=== PATIENT | female | born 1990 | race Caucasian/White ===

== ENCOUNTER 2023-06-08 09:04 | Emergency (ER) | payer OTHER, SELFPAY ==
[2023-06-08 09:08] VITALS: BP 143/108
--- NOTE | 2023-06-08 09:29 | ED.GENMED ---
History of Present Illness
General
Chief Complaint: Abdominal Symptoms
Time Seen by Provider: 06/08/23 09:29
Travel History
Have you had any contact with someone who has COVID-19?: No
Do you have any symptoms of coronavirus? Fever > 100 degrees, chills, cough, shortness of breath, sore throat, loss of taste or smell, muscle aches, or headache?: No
History of Present Illness
History of Present Illness:
HPI: The patient presents with epigastric discomfort associated with vomiting and chills. No significant diarrhea.
EXAM:
GENERAL: Well appearing in no distress
HEENT: Moist oral mucosa
CARDIOVASCULAR: No murmurs, normal heart rate and rhythm, No chest wall tenderness
PULMONARY: No respiratory distress, breath sounds are clear and equal
ABDOMEN: Soft with no peritoneal signs, no tenderness other than maybe some minimal upper abdominal tenderness
NEUROLOGIC: Excellent strength all extremities, no coordination deficits
PSYCHIATRIC: Appropriate mental status, normal insight and judgement
EXTREMITIES: Nontender, no edema, moves all extremities equally
SKIN: No rash, no lesions
ED COURSE:
I evaluated patient at 9:30 AM
NUMBER AND COMPLEXITY OF PROBLEMS ADDRESSED AT THE ENCOUNTER
� Chronic conditions affecting care:Has had ovarian cyst, IBS, has had preeclampsia
� Acute Exacerbation and/or Progression of Chronic Illness:
� Differential Diagnosis includes: Exacerbation of IBS, IBD, appendicitis, diverticulitis, pancreatitis,
AMOUNT AND/OR COMPLEXITY OF DATA TO BE REVIEWED AND ANALYZED
� I performed an independent evaluation of and my interpretation is:
EKG:
CT: CT personally reviewed and agree with radiologist interpretation of nonspecific findings
X-rays:
Laboratory Studies: White count normal 8.3, hemoglobin slightly low at 11.8, remainder of chemistries and hCG unremarkable
Other:
� Review of other/old records: I reviewed old records, the patient had preeclampsia in April 2022, in 2012 she had a colonoscopy due to hematochezia and heme positive stool and samples were biopsied
� Clinical information was obtained by an independent historian: None needed
� Prescriptions/Medications Considered but not given:
� Further testing considered but not performed:
RISK OF COMPLICATIONS AND/OR MORBIDITY OR MORTALITY OF PATIENT MANAGEMENT
� Social determinants of health affecting care: Lives at home
� Discussion with other providers:
� Escalation of care including admission/observation vs risk of discharge considered: The patient's workup is relatively were unremarkable including relatively unremarkable CT imaging. White count is normal. She appears fairly
comfortable throughout her stay in the ED. On reassessment at 12:40 PM, the patient is very comfortable in appearance.
Past History
Past History
ED Past Medical History: Other (IBS)
ED Past Surgical History: Tonsilectomy
Social History
Tobacco: Smoker
Alcohol: Occasional
Drug: None
Personal: Single
Living: with family
Employment: Not employed
Phy Exam
Physical Exam
Physical Exam:
See HPI
Course
Orders/Labs/Results
Orders:
Orders
06/08/23 09:57
0.9% Sodium Chloride 1000 ml [Nss] 1,000 ml IV BOLUS
06/08/23 09:58
Test Result ONCE
06/08/23 10:08
CT Abd/pelvis W Iv Cont Urgent
Comment:
Reason For Exam: diffuse abd pain w/ vomiting
06/08/23 10:26
Complete Blood Count/With Diff Urgent
Comprehensive Metabolic Panel Urgent
HCG, Serum Qualitative Screen Urgent
Lipase Urgent
Abnormal Lab Results
06/08/23
10:26
RBC 3.59 L 10^6/uL
(4.20-5.40)
Hgb 11.8 L g/dL
(12.0-16.0)
Hct 33.8 L %
(37.0-47.0)
MCH 32.9 H pg
(27.0-31.0)
MPV 10.6 H fL
(7.4-10.4)
Lymphocytes % 17.6 L %
(20.5-51.1)
06/08/23 10:26
06/08/23 10:26
Vital Signs
Initial and Last Documented VS:
Initial Vital Signs
Temp Pulse Resp BP Pulse Ox
97.7 F 77 20 143/108 100
06/08/23 09:08 06/08/23 09:08 06/08/23 09:08 06/08/23 09:08 06/08/23 09:08
Last Documented Vital Signs
Temp Pulse Resp BP Pulse Ox
97.7 F 77 20 143/108 100
06/08/23 09:08 06/08/23 09:08 06/08/23 09:08 06/08/23 09:08 06/08/23 09:08
*Critical Care Note
Total Time (30-74mins, 75-104mins- exclusive of procedures): Not Applicable
ED Attending Note
-
Portions of this chart may have been created with voice recognition software.� Occasional wrong word or��sound alike� substitutions may have occurred due to the inherent limitations of voice recognition software.
Discharge Plan
Departure
Patient Disposition: Home (Routine Discharge)
Date of Disposition: 06/08/23
Time of Disposition: 12:42
Patient with high blood pressure during this ER visit?: Yes
Discharge Problem:
Abdominal pain
Instructions: Abdominal Pain
Prescriptions:
No Action
loratadine [Claritin] 10 mg Tablet
10 mg PO DAILY
prenat.vits,ana,bxa-vgnc-emfyn Tablet
1 tab PO DAILY
acetaminophen 325 mg Tablet
650 mg PO Q4HPRN PRN (Reason: mild pain) Qty: 0 0RF
sennosides-docusate sodium 8.6-50 mg Tablet
1 tab PO DAILYPRN PRN (Reason: constipation) Qty: 0 0RF
ferrous sulfate [FeroSul] 325 mg (65 mg iron) Tablet
325 mg PO BID Qty: 0 0RF
ibuprofen 600 mg Tablet
600 mg PO Q6HPRN PRN (Reason: PAIN) Qty: 0 0RF
simethicone [Gas Relief 80 (simethicone)] 80 mg Tablet,Chewable
80 mg PO TIDPRN PRN (Reason: flatulence) Qty: 0 0RF
Referrals:
Will Ross MD [Active] - Follow up in 5-7 days
Javon Power MD [Family Provider] -
Activity Restrictions/Additional Instructions:
I have given you the contact information for a local GI doctor. Your white blood cell count is normal, your test is negative, other basic labs are normal and the CAT scan of the abdomen and pelvis just shows some nonspecific findings. No
clear cause for your pain. This may be related to IBS or perhaps a stomach bug. Return here if worse.
Interventions
Interventions:
*Risk Screen - Suicide Last Done: 06/08/23 10:17
*General Assessment Last Done: 06/08/23 10:17
*Neglect/Abuse Screening Last Done: 06/08/23 10:17
CG-Skvmbw-Zhzbqxivfe Assessment Last Done: 06/08/23 10:17
[2023-06-08 10:17] VITALS: BMI 35.7
[2023-06-08] MEDS: NSS 1000 IV (10:25)
[2023-06-08 10:33] LABS: % Basophils 0.2 % (0-2); % Eosinophils 1.4 % (0-6); % Immature Granulocytes 0.2 % (0-0.5); % Lymphocytes 17.6 % (20.5-51.1); % Monocytes 5.8 % (1.7-9.3); % Neutrophils 74.8 % (42.2-75.2); Absolute Eosinophils 0.1 10^3/uL (0-0.7); Absolute Lymphocytes 1.5 10^3/uL (1.2-3.4); Absolute Monocytes 0.5 10^3/uL (0.1-0.6); Absolute Neutrophils 6.2 10^3/uL (1.4-6.5); Hematocrit 33.8 % (37.0-47.0); Hemoglobin 11.8 g/dL (12.0-16.0); Mean Corp Hgb Conc. 34.9 g/dL (33.0-37.0); Mean Corpuscular Hgb 32.9 pg (27.0-31.0); Mean Corpuscular Volume 94.2 fL (81.0-99.0); Mean Platelet Volume 10.6 fL (7.4-10.4); Nucleated Red Blood Cells % 0 %; Platelet Count 294 10^3/uL (130-400); Red Blood Cell Count 3.59 10^6/uL (4.20-5.40); Red Cell Dist. Width 11.9 % (11.5-14.5); White Blood Cell Count 8.3 10^3/uL (4.8-10.8)
[2023-06-08 10:44] LABS: HCG, Serum Qualitative Screen Negative
[2023-06-08 10:47] LABS: ALT (SGPT) 30 U/L (0-35); AST (SGOT) 31 U/L (14-36); Albumin 4.4 g/dl (3.5-5.0); Alkaline Phosphatase 74 U/L (38-126); Blood Urea Nitrogen 14 mg/dl (7-17); Calcium 8.8 mg/dl (8.4-10.2); Carbon Dioxide 27 mmol/L (22-30); Chloride 104 mmol/L (98-107); Estimated Creatinine Clearance 106 ml/min; Glucose 97 mg/dl (70-99); Lipase 37 U/L (23-300); Potassium 4.2 mmol/L (3.5-5.1); Sodium 135 mmol/L (135-145); Total Bilirubin 0.6 mg/dl (0.2-1.3); eGFR > 60.00
[2023-06-08 13:10] VITALS: BP 138/88
== END 2023-06-08 13:12 | disposition home or self-care (01) ==
LOC: EMR 09:04
PROVIDERS: EMERGENCY PHYSICIAN Emergency Medicine; FAMILY PHYSICIAN Family Medicine
DX: R10.13 Epigastric pain (principal); R11.2 Nausea with vomiting, unspecified; K58.9 Irritable bowel syndrome, unspecified; F17.200 Nicotine dependence, unspecified, uncomplicated
CPT/HCPCS: 99284; 96360; 74177; 80053; 83690; 84703; 85025; Q9967